=== PATIENT | male | born 1975 | race Caucasian/White ===

== ENCOUNTER 2025-01-06 09:57 | Day surgery (SDC) | payer BC, OTHER ==
[2025-01-01 12:52] VITALS: BMI 29.7
[2025-01-06 12:38] VITALS: RESP 16; TEMP 97.3
[2025-01-06 13:32] VITALS: BP 99/59; PULSE 72
== END 2025-01-06 13:25 | disposition home or self-care (01) ==
LOC: FASU-ENDO 09:57
PROVIDERS: ATTEND Internal Medicine Gastroenterology
PROC: 0DBN8ZZ Excision of Sigmoid Colon, Via Natural or Artificial Opening Endoscopic (ICD-10-PCS; 2025-01-06)
PROC: 0DBM8ZZ Excision of Descending Colon, Via Natural or Artificial Opening Endoscopic (ICD-10-PCS; principal; 2025-01-06 12:08)
DX: Z12.11 Encounter for screening for malignant neoplasm of colon (principal); D12.4 Benign neoplasm of descending colon; K63.5 Polyp of colon
CPT/HCPCS: 88305-TC